=== PATIENT | female | born 1995 | race Hispanic/Latino ===

== ENCOUNTER 2021-03-18 15:39 | Emergency (ER) | payer OTHER ==
[~2021-03-18] VITALS: Ht 162.6 cm; Wt 72.6 kg
[2021-03-18 15:41] VITALS: BP 120/85
[2021-03-18 17:50] VITALS: BP 126/82
== END 2021-03-18 18:10 | disposition home or self-care (01) ==
LOC: EDH 15:50
DX: R10.9 Unspecified abdominal pain (principal); M54.6 Pain in thoracic spine; Z98.890 Other specified postprocedural states; V49.09XA Driver injured in collision with other motor vehicles in nontraffic accident, initial encounter; Y93.89 Activity, other specified; Y92.89 Other specified places as the place of occurrence of the external cause; Y99.8 Other external cause status
CPT/HCPCS: 99282